=== PATIENT | female | born 1985 | race Caucasian/White ===

== ENCOUNTER 2021-04-06 12:24 | Emergency (ER) | payer OTHER, SELFPAY ==
[2021-04-06 12:30] VITALS: BP 129/67; PULSE 79; RESP 18; TEMP 36.8; O2SAT 99
--- NOTE | 2021-04-06 12:56 | ED.URI ---
HPI - URI/Sore Throat General Chief Complaint: Upper Respiratory Infection Stated Complaint: itz,cough Source: patient and RN notes reviewed Mode of arrival: ambulatory Limitations: no limitations History of Present Illness HPI Narrative: Jaye is a 35-year-old female patient who ambulated into the [facility] today with complaints of severe nasal congestion and cough starting on 04/04/2021. Patient states she does not want a Covid test she has been vaccinated. Related Data Home Medications Medication Instructions Recorded Confirmed No Home Medications 04/06/21 04/06/21 Allergies Allergy/AdvReac Type Severity Reaction Status Date / Time morphine Allergy Severe Anaphylactic Verified 04/06/21 12:49 Shock ciprofloxacin Allergy Intermediate rash Verified 04/06/21 12:49 Review of Systems Review of Systems: CONSTITUTIONAL: Denies body aches, fever, chills, or sweats. EYES: Denies visual changes, redness, or discharge. ENT: + rhinorrhea,+ congestion, denies sore throat, or otalgia. CARDIOVASCULAR: Denies chest pain, palpitations, or edema. RESPIRATORY: + cough denies dyspnea. GASTROINTESTINAL: Denies abdominal pain, nausea, vomiting, or diarrhea. GENITOURINARY: Denies dysuria or hematuria. SKIN: Denies rash, itching, or wounds. MUSCULOSKELETAL: Denies back pain, joint pain, or myalgia. NEUROLOGIC: Denies headache, numbness, tingling, or weakness. PSYCH: Denies depression or anxiety. All systems reviewed & are unremarkable except as noted in HPI and below PMFSH Comments At time of signature, I have reviewed and agree with nursing past medical, surgical, social and family history unless otherwise noted. Please see nursing chart for further information. There is no relevant family history pertinent to the presenting complaint Exam Narrative: GENERAL: Well-appearing, well-nourished, and in no acute distress. HEAD: Normocephalic, atraumatic. EYES: EOMI. No redness or drainage. Conjunctivae normal. ENT: Mucous membranes pink and moist. N nasal membranes are erythematous with clear drainage. Bilateral tympanic membranes are dull with moderate amount of fluid. No erythema noted. Posterior pharynx is erythemic with minimal edema and moderate amount of postnasal drainage. NECK: Normal AROM. Supple. anterior cervical lymphadenopathy. CHEST: No respiratory distress. Clear to auscultation. MUSCULOSKELETAL: No bony tenderness. EXTREMITIES: Normal range of motion. No edema. SKIN: Warm, dry, no rash. Capillary refill normal. Normal skin turgor. NEURO: No focal deficits. Alert and oriented x3. Gait steady. PSYCH: Normal affect. No signs of depression or anxiety. Course Vital Signs Vital signs: Vital Signs Temperature 36.8 C 04/06/21 12:30 Pulse Rate 79 04/06/21 12:30 Respiratory Rate 18 04/06/21 12:30 Blood Pressure 129/67 04/06/21 12:30 Pulse Oximetry 99 04/06/21 12:30 Temperature 36.8 C 04/06/21 12:30 Pulse Rate 79 04/06/21 12:30 Respiratory Rate 18 04/06/21 12:30 Blood Pressure 129/67 04/06/21 12:30 Pulse Oximetry 99 04/06/21 12:30 MDM - URI/Sore Throat MDM Narrative Medical decision making narrative: Patient has erythemic nasal membranes with clear rhinorrhea.. The patient has been sick 3 to 4 days. Most likely viral infection. Differential Diagnosis Differential diagnosis: Likely upper respiratory infection, otitis media and viral infection Medical Records Attestation: I reviewed the patient's medical records. Critical Care Time Critical Care Time Critical Care Time: No Discharge Plan Discharge Clinical Impression: Nasopharyngitis acute Patient Disposition: Home, Self-Care Condition: Stable Instructions: Antibiotic Form, Cold Symptoms (ED) Additional Instructions: Increase fluids May use Claritin D or Zyrtec D daily for congestion. Use Flonase daily. May use OTC cold medication. Follow up with your physician in 7-10 days for cont
--- NOTE | 2021-04-06 13:36 | PC.NURSE ---
1305 noted during stay pt stated she did not want covid testing done
== END 2021-04-06 13:05 | disposition home or self-care (01) ==
PROVIDERS: Emergency Provider Nurse Practitioner Family; PCP Internal Medicine
DX: J00 Acute nasopharyngitis [common cold] (principal)
CPT/HCPCS: 99202; G0463

== ENCOUNTER 2021-06-22 15:37 | Emergency (ER) | payer OTHER, SELFPAY ==
--- NOTE | 2021-06-22 15:40 | ED.GENADULT ---
HPI - General Adult General Chief complaint: Upper Respiratory Infection Stated complaint: cough Time Seen by Provider: 06/22/21 15:40 Source: patient Mode of arrival: ambulatory Limitations: no limitations History of Present Illness HPI narrative: 35-year-old female patient presents to the [facility] with complaints of cough, nasal congestion, shortness of breath for the past 5 days. Patient is fully vaccinated against COVID. Patient states she has also been vaccinated against influenza. Patient states has been taking some [id number] NyQuil. Denies any chest pain at this time. Related Data Home Medications Medication Instructions Recorded Confirmed No Home Medications 04/06/21 06/22/21 Allergies Allergy/AdvReac Type Severity Reaction Status Date / Time morphine Allergy Severe Anaphylactic Verified 06/22/21 15:56 Shock ciprofloxacin Allergy Intermediate rash Verified 06/22/21 15:56 Review of Systems Review of Systems: CONSTITUTIONAL: Denies fever, chills, or sweats. EYES: Denies visual changes, redness, or discharge. ENT: Positive rhinorrhea, congestion, denies ore throat, or otalgia. CARDIOVASCULAR: Denies chest pain, palpitations, or edema. RESPIRATORY: Positive cough, intermittent dyspnea. GASTROINTESTINAL: Denies abdominal pain, nausea, vomiting, or diarrhea. GENITOURINARY: Denies dysuria or hematuria. SKIN: Denies rash or itching. MUSCULOSKELETAL: Denies back pain, joint pain, or myalgia. NEUROLOGIC: Denies headache, numbness, or weakness. PSYCHIATRIC: Denies anxiety or depression. PMFSH Past Medical History Medical History (Updated 06/22/21 @ 16:01 by BERNADETTE Multani) Gallstones Kidney stones Surgical History Surgical History (Updated 06/22/21 @ 15:41 by BERNADETTE Multani) H/O tubal ligation History of tonsillectomy Social History Social History (Updated 06/22/21 @ 15:42 by BERNADETTE Multani) Smoking status: Current every day smoker Comments At the time of my signature I agree with nursing past medical history, surgical, social, and family history. There is no relevant family history pertinent to the presenting complaint. Exam Narrative: GENERAL: Well-appearing, well-nourished, and in no acute distress. HEAD: Normocephalic, atraumatic. EYES: PERRLA and EOMI. ENT: Nares with erythema and edema noted bilaterally, no rhinorrhea or epistaxis. Mucous membranes moist. Posterior pharynx with no erythema, tonsillar lodgment, exudates or lesions present. Bilateral TMs are clear with no erythema or foreign bodies to the canal. NECK: Supple. No lymphadenopathy CHEST: Clear to auscultation. No respiratory distress. HEART: Regular rate and rhythm. No murmur heard. Normal peripheral pulses. ABDOMEN: Soft, nontender, nondistended, normal active bowel sounds. EXTREMITIES: Normal range of motion. No edema. SKIN: Warm, dry, no rash. NEURO: No focal deficits. Alert and oriented x3. Course Course Level of Care: [facility] Visit Vital Signs Vital signs: Vital Signs Temperature 38.1 C H 06/22/21 15:42 Pulse Rate 81 06/22/21 15:42 Respiratory Rate 16 06/22/21 15:42 Blood Pressure 137/70 06/22/21 15:42 Pulse Oximetry 100 06/22/21 15:42 Temperature 38.1 C H 06/22/21 15:42 Pulse Rate 81 06/22/21 15:42 Respiratory Rate 16 06/22/21 15:42 Blood Pressure 137/70 06/22/21 15:42 Pulse Oximetry 100 06/22/21 15:42 Vital signs reviewed Medical Decision Making Differential Diagnosis Differential Diagnosis: Differential diagnosis: Allergic rhinitis, chronic sinusitis, tonsillitis, acute sinusitis, infectious mononucleosis, seasonal influenza, pertussis, diphtheria, meningococcal disease, viral syndrome, viral bronchitis, RSV and COVID-19 Plan of care for patient is to test her today with a PCR COVID. Discussed with patient that she should not return to work until she has been fever free for 24 hours and she should wait on her COVID test. Patient v
[2021-06-22 15:42] VITALS: BP 137/70; PULSE 81; RESP 16; TEMP 38.1; O2SAT 100
[2021-06-23 13:26] LABS: SARS-CoV-2 RNA PCR Positive
== END 2021-06-22 16:04 | disposition home or self-care (01) ==
PROVIDERS: Emergency Provider Nurse Practitioner Family; PCP Internal Medicine
DX: U07.1 COVID-19 (principal); F17.200 Nicotine dependence, unspecified, uncomplicated
CPT/HCPCS: 99213; C9803; G0463; U0003; U0005

== ENCOUNTER 2024-03-23 15:58 | Emergency (ER) | payer OTHER, SELFPAY ==
[2024-03-23 16:25] VITALS: BP 128/106; PULSE 91; RESP 16; TEMP 36.6; O2SAT 98
--- NOTE | 2024-03-23 17:00 | ED.EAR ---
HPI - Ear Problem General Chief complaint: Ear Stated complaint: Right Ear Problem Time Seen by Provider: 03/23/24 17:00 Source: patient, RN notes reviewed and old records reviewed Mode of arrival: ambulatory Limitations: no limitations History of Present Illness HPI Narrative: 38-year-old female to [facility] with complaint of right inner ear pain, redness, swelling, warmth for 1 week. Patient reports history of psoriasis. Patient denies any known lesion, ear pain, recent illness, drainage. Patient resting in exam room in no acute distress. Related Data Home Medications Medication Instructions Recorded Confirmed dicyclomine 20 mg tablet 20 mg PO BID PRN Abdominal 03/23/24 03/23/24 Discomfort fluoxetine 40 mg capsule 40 mg PO DAILY 03/23/24 03/23/24 pantoprazole 40 mg tablet,delayed 40 mg PO BID 03/23/24 03/23/24 release Allergies Allergy/AdvReac Type Severity Reaction Status Date / Time morphine Allergy Severe Anaphylactic Verified 06/22/21 15:56 Shock ciprofloxacin Allergy Intermediate rash Verified 06/22/21 15:56 Review of Systems Review of Systems: All systems reviewed & are unremarkable except as noted in HPI and below Constitutional: Constitutional: Reports no additional constitutional complaints Eyes: Eyes: Reports no additional eye complaints ENT: Reports as per HPI and Reports otalgia ( Right) Cardiovascular: Cardiovascular: Reports no additional cardiovascular complaints, Denies chest pain and Denies dyspnea Respiratory: Respiratory: Reports no additional respiratory complaints, Denies cough and Denies dyspnea Musculoskeletal: Musculoskeletal: Reports no additional musculoskeletal complaints Neurologic: Reports system reviewed and no additional complaints, except as documented Psychiatric: Psychiatric: Reports no additional psychiatric complaints [facility] Past Medical History Medical History Gallstones Kidney stones Surgical History Surgical History H/O tubal ligation History of tonsillectomy Social History Social History Smoking status: Current every day smoker Comments At the time of my signature, I reviewed and agree with the nursing past medical, surgical, social, and family history. There is no relevant family history pertinent to the patient complaint. Exam Const: General: cooperative, healthy appearing, no acute distress, alert, uncomfortable and well nourished Nutritional Appearance: well nourished Orientation/consciousness: patient oriented x3 Limitations: no limitations HENMT: Head: normal to inspection Ears: TM normal on the right, mastoids normal, Abnormal EAC present erythema on the right and EAC tenderness on the right; no otic discharge, external ear abnormal auricular tenderness on the right and diffuse, pain with movement of external ear on the right and diffuse and other ( erythema, swelling, pain) and hearing grossly not impaired Face/Nose/Sinus: Normal external nose present, Normal nares present, normal facial exam, No erythema and No edema Face and sinus: normal facial exam, no erythema and no edema Mouth: Yes Normal oral and palatal mucosa present Eyes: General: appearance normal, both eyes and all related structures Neck: Neck: normal visual inspection, full ROM and no meningeal signs Chest: Chest palpation & inspection: normal inspection of the chest Resp: Effort & Inspection: normal respiratory effort and able to speak in complete sentences Cardio: Jugular venous distension: no JVD Rate: regular rate Back/Spine/Pelvis: Cervical Spine: cervical ROM normal Skin: General skin exam: normal color, no rashes or lesions noted and turgor normal Neuro: General: patient oriented x3, gait normal, moves all extremities and no meningeal signs Speech: normal speech Ga
== END 2024-03-23 17:16 | disposition home or self-care (01) ==
PROVIDERS: Emergency Provider Nurse Practitioner Family; PCP Internal Medicine
DX: H60.11 Cellulitis of right external ear (principal); F17.200 Nicotine dependence, unspecified, uncomplicated; L40.9 Psoriasis, unspecified
CPT/HCPCS: 99213; G0463

== ENCOUNTER 2024-06-09 13:15 | Emergency (ER) | payer OTHER, SELFPAY ==
[2024-06-09 13:20] VITALS: BP 137/78; PULSE 79; RESP 18; TEMP 37.2; O2SAT 99
--- NOTE | 2024-06-09 13:34 | ED.EAR ---
HPI - Ear Problem General Chief complaint: Ear Stated complaint: right ear swollen and lump on back of head Source: patient Mode of arrival: ambulatory Limitations: no limitations History of Present Illness HPI Narrative: 38 y/o female presented for c/o right ear swelling and a lump back of the head. Symptoms worsening x4 days. Reports the Scalp drained large amount of pus last night per pt. Ear and scalp hurt with touch. endorses decreased hearing from the right ear. Denies drainage or tinnitus. Rates Pain 6/10. Endorses psoriasis in the ear, and the drops burned the skin when she last used them. Took ibuprofen. MD Complaint: ear pain Related Data Allergies Allergy/AdvReac Type Severity Reaction Status Date / Time morphine Allergy Severe Anaphylactic Verified 06/09/24 13:26 Shock ciprofloxacin Allergy Intermediate rash Verified 06/09/24 13:26 Review of Systems Review of Systems: CONSTITUTIONAL: Denies malaise, chills, or fever. EYES: Denies visual changes, redness, or discharge. ENT: Denies rhinorrhea, congestion, sinus pain, and sore throat. Reports ear pain CARDIOVASCULAR: Denies chest pain, palpitations, or edema. RESPIRATORY: Denies cough or dyspnea. GASTROINTESTINAL: Denies abdominal pain, nausea, vomiting, diarrhea SKIN: reports scalp lump/drainage MUSCULOSKELETAL: Denies myalgia. NEUROLOGIC: Denies headache. All systems reviewed & are unremarkable except as noted in HPI and below PMFSH Past Medical History Medical History Kidney stones Gallstones Surgical History Surgical History H/O tubal ligation History of tonsillectomy Social History Social History Smoking status: Current every day smoker Comments At time of signature, agree with nursing past medical, surgical, social and family history. There is no relevant family history pertinent to the presenting complaint Exam Narrative: GENERAL: Well-appearing EYES: conjunctivae clear ENT: Nares clear. Mucous membranes moist. Left TM pearly thompson with dull light reflex; right TM unable to fully visualize due to pt unable to tolerate due to canal swelling and tenderness c/w OE, no apparent drainage. Left tragal tenderness. Oropharynx not erythematous without lesions. no drooling, no hoarseness, no trismus, uvula midline. NECK: Supple. No lymphadenopathy CHEST: Clear to auscultation, breath sounds equal. HEART: Regular rate and rhythm. SKIN: Warm, dry, Firm skin colored cyst/abscess to occipital scalp approx 2cm diameter with scabbed area at center, no active drainage or fluctuance, no erythema or warmth, mildly tender. NEURO: Alert and oriented x3. PSYCH: Normal mood and affect Course Course Emergency Course: Patient is aware of diagnosis, understands and agrees to treatment plan. Anticipatory guidance given. Patient agrees to follow-up as directed and is aware of reasons to seek care at the emergency department. Portions of this record may have been created with voice recognition software Level of Care: [facility] Visit Vital Signs Vital signs: Vital Signs Temperature 98.9 F 06/09/24 13:20 Pulse Rate 79 06/09/24 13:20 Respiratory Rate 18 06/09/24 13:20 Blood Pressure 137/78 06/09/24 13:20 Pulse Oximetry 99 06/09/24 13:20 Oxygen Delivery Room Air 06/09/24 13:20 Temperature 98.9 F 06/09/24 13:20 Pulse Rate 79 06/09/24 13:20 Respiratory Rate 18 06/09/24 13:20 Blood Pressure 137/78 06/09/24 13:20 Pulse Oximetry 99 06/09/24 13:20 Oxygen Delivery Room Air 06/09/24 13:20 Reviewed Medical Decision Making MDM Narrative Medical decision making narrative: discussed physical exam findings consistent with otitis externa and a no septal scalp abscess. No fluctuance, not indicated to I&D at this time. Rx's reviewed. Advised supportive measures and signs/symptoms to go to the ER. Patient is appropriate for outpatient treatment and follow-up. Differential Diagnosis Differential Diagnosis: Coronavirus, strep pharyngitis, allergic rhinitis, upper respiratory tract infection, sinusitis, rhinosinusitis, nasopharyngitis, viral pharyngitis, otitis media, otitis externa, eustachian tube dysfunction, foreign body, cerumen impaction. Vital Signs Vital Signs: Vital Signs Temperature 98.9 F 06/09/24 13:20 Pulse Rate 79 06/09/24 13:20 Respiratory Rate 18 06/09/24 13:20 Blood Pressure 137/78 06/09/24 13:20 Pulse Oximetry 99 06/09/24 13:20 Oxygen Delivery Room Air 06/09/24 13:20 Temperature 98.9 F 06/09/24 13:20 Pulse Rate 79 06/09/24 13:20 Respiratory Rate 18 06/09/24 13:20 Blood Pressure 137/78 06/09/24 13:20 Pulse Oximetry 99 06/09/24 13:20 Oxygen Delivery Room Air 06/09/24 13:20 Discharge Plan Discharge Clinical Impression: Otitis externa, Abscess Patient Disposition: Home, Self-Care Condition: Stable Instructions: Antibiotic Form, Swimmer's Ear (ED), Abscess (ED) Additional Instructions: Swimmer's ear is an infection in the outer ear canal, which runs from your eardrum to the outside of your head. It's often caused by water that remains in your ear, creating a moist environment that encourages the growth of bacteria. Take antibiotic drops as directed. Tylenol and ibuprofen every 8 hours as needed to reduce fever, pain Avoid water or anything into the ear for one week Abscess on scalp: You may shower and Cleanse with warm soapy water Keep your wound covered if draining Warm compresses at least 4 times a day to the site to help expel any additional drainage. Take antibiotic as directed Tylenol and ibuprofen every 8 hours for pain as needed Follow up with your primary care physician in 3 days for a wound check. Go to the Emergency Department immediately For any worsening symptoms or concerns Patient Language: Hungarian Prescriptions: New gzqrmrof-[id number] 3.5-10,000-1 mg/mL-unit/mL-% drops,suspension 4 drp RIGHT EAR TID 10 Days Qty: 10 0RF doxycycline hyclate 100 mg tablet 100 mg PO BID 7 Days Qty: 14 0RF Follow-up/Referrals: Dory,MD Gail [Primary Care Provider] - Time of Disposition: 13:48
== END 2024-06-09 13:54 | disposition home or self-care (01) ==
PROVIDERS: Emergency Provider Nurse Practitioner Family; PCP Internal Medicine
DX: H60.01 Abscess of right external ear (principal)
CPT/HCPCS: 99213; G0463

== ENCOUNTER 2024-09-18 09:32 | Emergency (ER) | payer BC, SELFPAY ==
[2024-09-18 09:44] VITALS: BP 141/78; PULSE 85; RESP 16; TEMP 36.8; O2SAT 100
--- NOTE | 2024-09-18 10:01 | ED.LOWEXIN ---
HPI - Extremity Injury (Lower) General Chief Complaint: Extremity Injury, Lower Stated Complaint: Left Foot Injury/Swelling Time Seen by Provider: 09/18/24 10:01 Source: patient Mode of arrival: ambulatory Limitations: no limitations History of Present Illness HPI Narrative: 39-year-old female presents with complaint swelling, pain and redness to left lower extremity. Patient states 2 days ago she was plucking hair from her face and tweezers dropped. States that tweezers were pointy and stuck in to left ankle. Bleeding after injury but resolved quickly. Pain and swelling it started yesterday. Woke up this morning with redness and warmth. Concern for infection. Patient ambulatory with slight limp. CMS intact. All systems reviewed and negative except as noted above. Related Data Allergies Allergy/AdvReac Type Severity Reaction Status Date / Time morphine Allergy Severe Anaphylactic Verified 09/18/24 09:50 Shock ciprofloxacin Allergy Intermediate rash Verified 09/18/24 09:50 Review of Systems Review of Systems: CONSTITUTIONAL: Denies fever, chills, or sweats. EYES: Denies visual changes, redness, or discharge. ENT: Denies rhinorrhea, congestion, sore throat, or otalgia. CARDIOVASCULAR: Denies chest pain, palpitations, or edema. RESPIRATORY: Denies cough or dyspnea. GASTROINTESTINAL: Denies abdominal pain, nausea, vomiting, or diarrhea. GENITOURINARY: Denies dysuria or hematuria. SKIN: Denies rash or itching. Reports pain, swelling, redness, warmth to left lower extremity. MUSCULOSKELETAL: Denies back pain, joint pain, or myalgia. NEUROLOGIC: Denies headache, numbness, or weakness. PSYCHIATRIC: Denies anxiety or depression. All other systems reviewed are negative, except as documented in HPI. [facility] Past Medical History Medical History Kidney stones Gallstones Surgical History Surgical History H/O tubal ligation History of tonsillectomy Social History Social History Smoking status: Current every day smoker Comments At time of signature, agree with nursing past medical, surgical, social and family history. There is no relevant family history pertinent to the presenting complaint. Exam Narrative: GENERAL: This is a well-nourished, well-developed patient, in no apparent distress. HEAD: normocephalic, atraumatic. EYES: PERRL. Sclera clear/white. Vision is grossly intact. EARS: External ears normal NOSE: External nose normal NECK: Neck supple, non-tender without lymphadenopathy, masses or thyromegaly. CARDIOVASCULAR: Regular rate and rhythm without murmurs, gallops, or rubs. RESPIRATORY: Clear to auscultation. Breath sounds equal bilaterally. No wheezes, rales, or rhonchi. SKIN: warm, Dry, intact with no suspicious lesions or rash, good texture and turgor. NEURO: awake, alert, and oriented to person, place and time. There were no obvious focal neurologic abnormalities. EXTREMITIES: No joint tenderness, effusion noted. erythema, swelling, tenderness to anterior aspect L ankle with warmth on palpation. ROM and distal NV intact. Course Course Level of Care: [facility] Visit Vital Signs Vital signs: Vital Signs Temperature 36.8 C 09/18/24 09:44 Pulse Rate 85 09/18/24 09:44 Respiratory Rate 16 09/18/24 09:44 Blood Pressure 141/78 H 09/18/24 09:44 Pulse Oximetry 100 09/18/24 09:44 Oxygen Delivery Room Air 09/18/24 09:44 Temperature 36.8 C 09/18/24 09:44 Pulse Rate 85 09/18/24 09:44 Respiratory Rate 16 09/18/24 09:44 Blood Pressure 141/78 H 09/18/24 09:44 Pulse Oximetry 100 09/18/24 09:44 Oxygen Delivery Room Air 09/18/24 09:44 Reviewed MDM - Extremity Injury (Lower) MDM Narrative Medical decision making narrative: patient is well-appearing, nontoxic. CMS intact to left lower extremity. Will prescribe antibiotic for cellulitis. Recommend follow-up with primary care physician as needed. Please be advised this is a medical document. It is intended for [id number] communication. It is written in medical language and may contain unfamiliar abbreviations or verbiage. Medical documents are intended to carry relevant information, facts as evident, and the clinical opinion of the practitioner at the time of the encounter. This report may have been done utilizing a voice recognition system. Attempts have been made to correct errors. However, there may be uncorrected grammatical, spelling, and recognition errors present. The file time of this note does not necessarily represent the time of service. Discharge Plan Discharge Clinical Impression: Cellulitis of left lower extremity Patient Disposition: Home Condition: Stable Instructions: Antibiotic Form, Cellulitis (ED) Additional Instructions: take antibiotic as prescribed until gone. Take ibuprofen or Tylenol every 6-8 hours as needed for pain. Elevate when at rest. Follow-up with your doctor if symptoms are not improving. For any worsening of symptoms go to the ER. Patient Language: Canadian Prescriptions: New cephalexin 500 mg capsule 500 mg PO QID 7 Days Qty: 28 0RF Follow-up/Referrals: Dory,MD Gail [Primary Care Provider] - Time of Disposition: 10:08
--- OUTSIDE RECORDS SUMMARY | 2024-09-18 10:23 | XMS_ITS ---
Care Plan - [facility] Created on: September 18, 2024 TOREY PAGAN : 1985 Sex: Female Author Organization [facility] Address [address] [place] [address] Phone Care Team Providers Care [employer] T[employer] Name Role Phone Unavailable Unavailable Unavailable
--- OUTSIDE RECORDS SUMMARY | 2024-09-18 10:23 | XMS_ITS | Clinical Summary ---
Author Organization [facility] Address [address] [place] [address] Phone Care Team Providers Care Rayon Coner Name Role Phone Unavailable Unavailable Unavailable Reason for Visit and Chief Complaint The Chief Complaint is: Patient states she is experiencing bilateral ear pain for about 4 or 5 days. She woke up this morning with right ear canal swollen shut making hearing very difficult Problems Includes: Problems addressed during this encounter and other active Problems No Active Problems Plan of Treatment If symptoms worsen or do not improve call/return to office. - Last Documented On 01/24/2020 6:08PM ; [facility] Assessments Includes: Assessments from this encounter Findings - Otitis externa [H60.333 - Swimmer's ear, bilateral] - Last Documented On 01/24/2020 6:08PM ; [facility] Medical Equipment - Implanted Devices Includes: Current Devices No Medical Equipment Recorded Medications Includes: Medications discussed during this encounter and other current Medications New / Renewed during this visit FRANCISCA FRENCH on 01/24/2020 Nbfukaqo-Zietiivnh-SD 3.5-10 000-1 Otic Solution Provider: FRANCISCA FRENCH 10 day supply: 1 bottle, 0 refills Diagnosis: Swimmer's ear, bilateral as directed 4 drops in each ear TID Pharmacy: [facility] [address], [address] - Last Documented On 12/26/2020 10:09AM By Blade ARMENDARIZ ; [facility] Current Medications (continue as prescribed) Cipbrwom-Wvqorlksd-KT 1% Suzette c Solution 12/26/2020 Provider: ADDISON SOSA Diagnosis: Acute serous suzette tis media, left ear as directed Last Documented On 1 10:15AM By ADDISON SOSA ; [facility] Medications Administered Includes: Administered Medications from this encounter No Administered Medications Recorded Vital Signs Includes: Vital Signs from this encounter Vital Name 01/24/2020 05:57P Blood Pressure Sitting L 110/70 BP Cuff Size Regular Pulse Rate-Sitting (bpm) 67 Temp-Oral (F) 98.7 Height (in) 66 Weight (lb) 163 Body Mass Index (kg/m2) 26.3 Body Surface Area (m2) 1.8 Oxygen Saturation (%) 97 Last Documented: On 01/24/2020 5:59PM ; [facility] Results Includes: Results discussed during this encounter No Results Recorded For Specified Dates History of Present Illness Includes: History of Present Illness from this encounter RICHAR PAGAN is a 34 year old female. - Allergy list reviewed - Medication reconciliation performed - Feeling fine - Not feeling poorly (malaise) - No fever - No chills - No headache - Earache in right ear - In left ear - No nasal discharge - No postnasal drip - No nasal passage blockage (stuffiness) - No sore throat - No dyspnea - No cough - No wheezing - No vomiting - No diarrhea Patient is here today for bilateral ear ache-- ears feels plugged and swollen. Social History Description Last Updated Smoker 01/24/2020 Last Documented On 0 6:08PM ; [facility] Smoking Status Unknown Procedures and Surgical History Includes: Procedures from this encounter Procedures Code Diagnosis Performing Provider Service L ocation Service Date review of medications documented 1160F Last Documented On 0 5:57PM ; [facility] Clinical summary provided to patient Last Documented On 0 6:06PM ; [facility] Medical History Includes: Medical History addressed during this encounter No Medical History Recorded Family History Includes: Family History addressed during this encounter No Family History Recorded Review of Systems Includes: Review of Systems from this encounter Systemic: No fever. Head: No headache. Otolaryngeal: Earache. No nasal discharge and no sore throat. Pulmonary: No cough. Gastrointestinal: No gastrointestinal symptoms. Skin: No skin symptoms. Mental Status Includes: Mental Status from this encounter Description Oriented to time, place, and person Functional Status Includes: Functional Status from this encounter No Functional Status Recorded Physical Exam Includes: Physical Exam from this encounter Allergies Includes: Active Allergies Substance Type Reaction Onset Date Resolved Date Statu s Cipro Allergy Nausea, Vomiting 01/24/2020 Ac tive Last Documented On 1 9:56AM ; [facility] Encounters Encounter Provider Location Date Check-In Time Check-Out Time Diagnosis WALK-IN CLINIC SICK VISIT FRANCISCA FLEMING-C [facility] 01/24/20 20 5:45PM 6:08PM Otitis Externa Insurance Includes: Active Insurance Policies Plan Name Member ID Group # Subscriber Relationship Effect tonya Dates 1 - AETNA [facility] [id number] TOREY PAGAN Self Clinical Notes Includes: Clinical Notes from this encounter No Clinical Notes Recorded
--- OUTSIDE RECORDS SUMMARY | 2024-09-18 10:23 | XMS_ITS | Clinical Summary ---
Author Organization [facility] Address [address] [place] [address] Phone Care Team Providers Care Transaction Processor Name Role Phone Unavailable Unavailable Unavailable Reason for Visit and Chief Complaint The Chief Complaint is: Exposed at work, Pt cough and ear pain Problems Includes: Problems addressed during this encounter and other active Problems No Active Problems Plan of Treatment - Return to the clinic if condition worsens or new symptoms arise - Last Documented On 12/26/2020 4:44PM ; [facility] - Go to the emergency room if condition worsens - Last Documented On 12/26/2020 4:44PM ; [facility] - Patient will call for appointment as needed - Last Documented On 12/26/2020 4:44PM ; [facility] Instructions to patient Instructions for patient Last Documented On 4:37PM ; [facility] Go to the emergency room if condition worsens Last Documented On 4:43PM ; [facility] Watch for signs/symptoms of infection, return to the clinic if seen Last Documented On 4:43PM ; [facility] Assessments Includes: Assessments from this encounter Findings - Acute upper respiratory infection - Last Documented On 12/26/2020 4:44PM ; [facility] Instructions Includes: Instructions from this encounter Instructions to patient Instructions for patient Last Documented On 4:37PM ; [facility] Go to the emergency room if condition worsens Last Documented On 4:43PM ; [facility] Watch for signs/symptoms of infection, return to the clinic if seen Last Documented On 4:43PM ; [facility] Medical Equipment - Implanted Devices Includes: Current Devices No Medical Equipment Recorded Medications Includes: Medications discussed during this encounter and other current Medications Discontinued / Stopped on this date FRANCISCA FRENCH on 01/24/2020 Fgjpxwgo-Nhwlohjqx-TQ 3.5-10 000-1 Otic Solution Provider: FRANCISCA FRENCH Diagnosis: Swimmer's ear, bilateral Last Documented On 12/26/2020 10:09AM By Blade ARMENDARIZ ; [facility] New / Renewed during this visit ADDISON SOSA on 12/26/2020 Fqsjvdhl-Rdedzwoho-YS 1% Vilma c Solution Provider: ADDISON SOSA 30 day supply: 10 mL, 0 refills Diagnosis: Acute serous otitis media, left ear as directed Pharmacy: [facility] [address], [address] - Last Documented On 10:15AM By ADDISON SOSA ; [facility] Medications Administered Includes: Administered Medications from this encounter No Administered Medications Recorded Vital Signs Includes: Vital Signs from this encounter Vital Name 12/26/2020 10:15A 12/26/2020 10: 09A Height (in) 66 66 Weight (lb) 198 98.8 Body Mass Index (kg/m2) 32.0 15.9 Body Surface Area (m2) 2.0 1.5 Pulse Rate-Sitting (bpm) 79 Oxygen Saturation (%) 99 Last Documented: On 12/26/2020 10:15A M ; [facility] On 12/26/2020 10:10AM ; [facility] Results Includes: Results discussed during this encounter Rapid COVID Test [facility] Ordered by ADDISON SOSA on Collected: Reported: 12/26/2020 12:09 Last Documented On 12:09PM ; [facility] Reviewed on 12/26/2020; All test results are final unless otherwise noted. Rapid COVId NEGATIVE N (Normal) Last Documented On 12:09PM ; [facility] Int. QC Acceptable YES N (Normal) Last Documented On 1 12:09PM ; [facility] Lot # and Exp. Date [id number] 03/19/21 N (Normal) Last Documented On 1 12:09PM ; [facility] History of Present Illness Includes: History of Present Illness from this encounter RICHAR PAGAN is a 35 year old female. Source of patient information was patient ? Allergy list reviewed ? Medication reconciliation performed - Duration of symptoms - Previously well - No fever - No chills - Headache - No sinus pain - No sinus pressure - No swollen glands in the neck - No itching of the eyes - No discharge from the eyes - Earache in left ear - Nasal discharge - The ears do not feel pressured - The ears do not feel full - No discharge from the ears - No postnasal drip - No nasal passage blockage (stuffiness) - No sneezing - No sore throat - No itchy throat - No chest pain or discomfort - No palpitations - Cough - Not feeling congested in the chest - No dyspnea - No wheezing - No rash pt to clinic for above symptoms x 4 days was exposed to covid at work - also having left ear pain she has not been taking any OTC medications Social History Description Last Updated Current smoker 12/26/2020 Last Documented On 1 4:44PM ; [facility] Smoker 01/24/2020 Last Documented On 1 10:09AM ; [facility] Smoking Status Unknown Procedures and Surgical History Includes: Procedures from this encounter Procedures Code Diagnosis Performing Provider Service L ocation Service Date the options include close observation Last Documented On 1 4:43PM ; [facility] watch for signs/symptoms of infection, r eturn to the clinic if seen Last Documented On 1 4:43PM ; [facility] plan of care reviewed and agreed to by t he patient Last Documented On 1 4:37PM ; [facility] Patient verbalizes understanding Last Documented On 1 4:37PM ; [facility] Increase fluids Last Documented On 1 4:37PM ; [facility] Clinical summary provided to patient Last Documented On 1 4:37PM ; [facility] Medical History Includes: Medical History addressed during this encounter Description Last Updated Contact with and (Suspected) exposure to COVID-19 12/26/2020 Last Documented On 1 4:44PM ; [facility] No fall 12/26/2020 Last Documented On 1 4:44PM ; [facility] Family History Includes: Family History addressed during this encounter Description Last Updated Family history unchanged 12/26/2020 Last Documented On 1 4:44PM ; [facility] Review of Systems Includes: Review of Systems from this encounter Systemic: No edema. Head: No headache. Neurological: No dizziness. Past Medical: No fall in the past 6 months. Mental Status Includes: Mental Status from this encounter Description Oriented to time, place, and person Functional Status Includes: Functional Status from this encounter No Functional Status Recorded Physical Exam Includes: Physical Exam from this encounter Allergies Includes: Active Allergies Substance Type Reaction Onset Date Resolved Date Statu s Cipro Allergy Nausea, Vomiting 01/24/2020 Ac tive Last Documented On 1 9:56AM ; [facility] Encounters Encounter Provider Location Date Check-In Time Check-Out Time Diagnosis COVID SICK VISIT- ESTABLISHED PATIENT ADDISON Masters BLADIMIR NAIL MAKER-BC [facility] 12/27/19 21 9:40AM 10:13AM Upper Respiratory Infection Acute Insurance Includes: Active Insurance Policies Plan Name Member ID Group # Subscriber Relationship Effect tonya Dates 1 - AETNA [facility] [id number] TOREY PAGAN Self Clinical Notes Includes: Clinical Notes from this encounter No Clinical Notes Recorded
--- OUTSIDE RECORDS SUMMARY | 2024-09-18 10:23 | XMS_ITS | Clinical Summary ---
Author Organization [facility] Address [address] [place] [address] Phone Care Team Providers Care Plastic Tool Maker Name Role Phone Unavailable Unavailable Unavailable Reason for Visit and Chief Complaint The Chief Complaint is: COVID exposure on December 26 to her co-worker, sx of chills/sweats,coughing phlegm, sinus drainage, nausea/vomiting, STRONG, S.T and fatigue/tired since yesterday Problems Includes: Problems addressed during this encounter and other active Problems No Active Problems Plan of Treatment - The options include close observation - Last Documented On 12/30/2020 10:16AM ; [facility] - Continue current medication - Last Documented On 12/30/2020 10:16AM ; [facility] Rapid COVID testing performed today and was negative. Patient to continue to monitor symptoms closely as rapid testing may have false negative results. Call with development of additional or worsening symptoms. Go to ED with severe respiratory symptoms. - Last Documented On 12/30/2020 10:16AM ; [facility] Due to close contact with a person who has COVID-19, patient was advised to: Stay home until 14 days after last contact. Check temperature twice a day and watch for symptoms of COVID-19. If possible, stay away from people who are higher-risk for getting very sick from COVID-19. - Last Documented On 12/30/2020 10:16AM ; [facility] Assessments Includes: Assessments from this encounter Findings - Contact with and (Suspected) exposure to COVID-19 [Contact with and (suspected) exposure to COVID-19] - Last Documented On 12/30/2020 10:16AM ; [facility] Medical Equipment - Implanted Devices Includes: Current Devices No Medical Equipment Recorded Medications Includes: Medications discussed during this encounter and other current Medications Current Medications (continue as prescribed) Dhvnllmf-Ctglmsdfn-QO 1% Suzette c Solution 12/26/2020 Provider: ADDISON SOSA Diagnosis: Acute serous suzette tis media, left ear as directed Last Documented On 10:15AM By ADDISON SOSA ; [facility] Medications Administered Includes: Administered Medications from this encounter No Administered Medications Recorded Vital Signs Includes: Vital Signs from this encounter Vital Name 12/30/2020 09:57A Pulse Rate-Sitting (bpm) 63 Temp-Oral (F) 98 Height (in) 66 Oxygen Saturation (%) 98 Last Documented: On 12/30/2020 10:14A M ; [facility] Results Includes: Results discussed during this encounter Rapid COVID Test [facility] Ordered by HARRIETT FRENCH on 12/06 Collected: Reported: 12/30/2020 Last Documented On 10:08AM ; [facility] Reviewed on 12/30/2020; All test results are final unless otherwise noted. Rapid COVId neg N (Normal) Last Documented On 10:08AM ; [facility] Int. QC Acceptable yes N (Normal) Last Documented On 10:08AM ; [facility] Lot # and Exp. Date [id number] 03/19/21 N (Normal) Last Documented On 10:08AM ; [facility] History of Present Illness Includes: History of Present Illness from this encounter RICHAR PAGAN is a 35 year old female. - Allergy list reviewed - Medication reconciliation performed - Feeling tired - Chills - Not feeling poorly (malaise) - No fever - Headache - No sinus pain - No swollen glands in the neck - Nasal discharge - Sore throat - No ear symptoms - No earache - No postnasal drip - No nasal passage blockage (stuffiness) - No sneezing - No chest pain or discomfort - Not feeling congested in the chest - No shortness of breath - No cough - Not coughing up sputum - No wheezing - Nausea - Vomiting - Normal appetite - No abdominal pain - No diarrhea - Myalgias - No anosmia - No taste disturbances - Not unpleasantly altered - No skin symptoms Jaye is a 35-year-old female patient that presented to the walk-in clinic for chills, cough, sinus drainage, nausea, vomiting, headache, sore throat and fatigue that started yesterday. She reports that she was exposed to a coworker that tested positive for COVID-last exposure was 12/26. She has not been taking any OTC medication for symptoms. Social History Description Last Updated Not a current smoker 12/30/2020 Last Documented On 10:16AM ; [facility] Current smoker 12/30/2020 Last Documented On 10:16AM ; [facility] Smoking Status Unknown Procedures and Surgical History Includes: Procedures from this encounter Procedures Code Diagnosis Performing Provider Service L ocation Service Date the options include decongestants as needed per product instructions Last Documented On 10:11AM ; [facility] the options include antihistamines as ne eded per product instructions Last Documented On 10:11AM ; [facility] Pt to use OTC fever/pain product as need ed per product instruction.~ Last Documented On 10:11AM ; [facility] Pt to use OTC expectorant product as nee ded per product instruction.~ Last Documented On 10:11AM ; [facility] Pt to use OTC cough product as needed pe r product instruction.~ Last Documented On 10:11AM ; [facility] plan of care reviewed and agreed to Last Documented On 10:11AM ; [facility] patient to call if symptoms worsen or not improved to update patient's status as needed Last Documented On 10:11AM ; [facility] use of tobacco assessment performed 1000F Last Documented On 9:57AM ; [facility] Medical History Includes: Medical History addressed during this encounter Description Last Updated Exposure to a contagious disease 021 Last Documented On 10:16AM ; [facility] Not taking OTC medications 12/30/2020 Last Documented On 1 10:16AM ; [facility] Contact with and (Suspected) exposure to COVID-19 12/30/2020 Last Documented On 1 10:16AM ; [facility] Date COVID symptoms started: 12/2020 Last Documented On 1 10:16AM ; [facility] No fall 12/30/2020 Last Documented On 1 10:16AM ; [facility] Family History Includes: Family History addressed during this encounter No Family History Recorded Review of Systems Includes: Review of Systems from this encounter Systemic: No fever. Chills. Head: Headache. No sinus pressure. Otolaryngeal: No earache. Nasal discharge and sore throat. Cardiovascular: No chest pain or discomfort. Pulmonary: Cough. No wheezing. Gastrointestinal: Vomiting. No abdominal pain and no diarrhea. Musculoskeletal: Muscle aches. Skin: No skin lesions. Mental Status Includes: Mental Status from this encounter No Mental Status Recorded Functional Status Includes: Functional Status from this encounter No Functional Status Recorded Physical Exam Includes: Physical Exam from this encounter Allergies Includes: Active Allergies Substance Type Reaction Onset Date Resolved Date Statu s Cipro Allergy Nausea, Vomiting 01/24/2020 Ac tive Last Documented On 1 9:56AM ; [facility] Encounters Encounter Provider Location Date Check-In Time Check-Out Time Diagnosis COVID SICK VISIT- ESTABLISHED PATIENT HARRIETT Guerrero IBANEZ LAP MACHINE TENDER-C [facility] 12/31/19 21 9:42AM 10:07AM Contact with and (Suspected) Exposure To Covid-19 Insurance Includes: Active Insurance Policies Plan Name Member ID Group # Subscriber Relationship Effect tonya Dates 1 - AETNA [facility] [id number] TOREY PAGAN Self Clinical Notes Includes: Clinical Notes from this encounter No Clinical Notes Recorded
--- OUTSIDE RECORDS SUMMARY | 2024-09-18 10:23 | XMS_ITS ---
Author Organization [facility] Address [address] [place] [address] Phone Care Team Providers Care Registered Nurse Practitioner Name Role Phone Unavailable Unavailable Unavailable Problems Includes: Active, inactive, and resolved Problems No Active Problems Plan of Treatment Findings Encounter Date Continue current medication COVID SICK V ISIT- ESTABLISHED PATIENT with HARRIETT IBANEZ ONSHORE DIVER-C 12/30/2020 Last Documented On 1 10:16AM ; [facility] The options include close observation CO VID SICK VISIT- ESTABLISHED PATIENT with HARRIETT IBANEZ ONSHORE DIVER-C 12/30/2020 Last Documented On 1 10:16AM ; [facility] Go to the emergency room if condition worsens COVID SICK VISIT- ESTABLISHED PATIENT with ADDISON Masters BLADIMIR ONSHORE DIVER-BC 12/26/2020 Last Documented On 1 4:44PM ; [facility] Ordered patient will call [facility] appointment as needed COVID SICK VISIT- ESTABLISHED PATIENT with ADDISON Masters BLADIMIR ONSHORE DIVER-BC 12/26/2020 Last Documented On 1 4:44PM ; [facility] Ordered return to the clinic if condition worsens or new symptoms arise COVID SICK VISIT- ESTABLISHED PATIENT with ADDISON Masters BLADIMIR ONSHORE DIVER-BC 12/26/2020 Last Documented On 1 4:44PM ; [facility] Instructions to patient Instructions for patient Last Documented On 1 4:37PM ; [facility] Go to the emergency room if condition worsens Last Documented On 1 4:43PM ; [facility] Watch for signs/symptoms of infection, return to the clinic if seen Last Documented On 1 4:43PM ; [facility] Assessments Includes: Assessments for all patient encounters Findings Encounter Date Contact with and (Suspected) exposure to COVID-19 COVID SICK VISIT- ESTABLISHED PATIENT with HARRIETT SPARKSP-C 12/30/2020 Last Documented On 1 10:16AM ; [facility] Acute upper respiratory infection COVID SICK VISIT- ESTABLISHED PATIENT with ADDISON SOSA 12/26/2020 Last Documented On 1 4:44PM ; [facility] Otitis externa [H60.333 - Sw immer's ear, bilateral] WALK-IN CLINIC SICK VISIT with FRANCISCA FLEMING-Salima 01/24/2020 Last Documented On 0 6:08PM ; [facility] Instructions Includes: Instructions for all patient encounters Instructions to patient Instructions for patient Last Documented On 1 4:37PM ; [facility] Go to the emergency room if condition worsens Last Documented On 1 4:43PM ; [facility] Watch for signs/symptoms of infection, return to the clinic if seen Last Documented On 1 4:43PM ; [facility] Medical Equipment - Implanted Devices Includes: Current and historical Devices No Medical Equipment Recorded Medications Includes: Current and historical Medications Current Medications (continue as prescribed) Kwnecfbt-Hgnglhaya-KX 1% Suzette c Solution 12/26/2020 Provider: ADDISON SOSA Diagnosis: Acute serous suzette tis media, left ear as directed Last Documented On 1 10:15AM By ADDISON SOSA ; [facility] Past Medications on file Ntonvifo-Ojretlwcw-AE 3.5-43215-9 Otic Solution 01/24/2020 - 12/26/2020 Provider: FRANCISCA FRENCH Diagnosis: Swimmer's ear, bilateral as directed 4 drops in each ear TID Last Documented On 12/26/2020 10:09AM By Blade ARMENDARIZ ; [facility] Medications Administered Includes: Administered Medications in patient's chart No Administered Medications Recorded Results Includes: Results from 09/19/2023 through 09/18/2024 No Results Recorded For Specified Dates History of Present Illness History of Present Illness not supported for this document type No History of Present Illness Recorded Social History Description Last Updated Not a current smoker 12/30/2020 Last Documented On 1 10:16AM ; [facility] Smoker 01/24/2020 Last Documented On 0 6:08PM ; [facility] Smoking Status Unknown Medical History Includes: Medical History in patient's chart Description Last Updated Exposure to a contagious disease 021 Last Documented On 1 10:16AM ; [facility] Not taking OTC medications 12/30/2020 Last Documented On 10:16AM ; [facility] Contact with and (Suspected) exposure to COVID-19 12/30/2020 Last Documented On 1 10:16AM ; [facility] Date COVID symptoms started: 12/2020 Last Documented On 1 10:16AM ; [facility] No fall 12/30/2020 Last Documented On 1 10:16AM ; [facility] Family History Includes: Family History in patient's chart Description Last Updated Family history unchanged 12/26/2020 Last Documented On 1 4:44PM ; [facility] Review of Systems Review of Systems not supported for this document type No Review of Systems Recorded Mental Status No Mental Status Recorded Functional Status No Functional Status Recorded Physical Exam Physical Exam not supported for this document type No Physical Exam Recorded Allergies Includes: Active, inactive, and resolved Allergies Substance Type Reaction Onset Date Resolved Date Statu s Cipro Allergy Nausea, Vomiting 01/24/2020 Ac tive Last Documented On 1 9:56AM ; [facility] Insurance Includes: Active Insurance Policies Plan Name Member ID Group # Subscriber Relationship Effect tonya Dates 1 - AETNA [facility] [id number] TOREY PAGAN Self Clinical Notes Includes: Signed Clinical Notes starting from 06/26/2022 No Clinical Notes Recorded
--- OUTSIDE RECORDS SUMMARY | 2024-09-18 10:32 | XMS_ITS | Clinical Summary ---
Author Organization [facility] Address [address] [place] [address] Phone Care Team Providers Care Shake Loader Name Role Phone Unavailable Unavailable Unavailable Reason [...] - Last Documented On 01/24/2020 6:08PM ; [facility] Assessments Includes: Assessments from this encounter Findings - Otitis externa [H60.333 - Swimmer's ear, bilateral] - Last Documented On 01/24/2020 6:08PM ; [facility] Medical Equipment - Implanted Devices Includes: Current Devices No Medical Equipment Recorded Medications Includes: Medications discussed during this encounter and other current Medications New / Renewed during this visit FRANCISCA FRENCH on 01/24/2020 Celwxnlk-Mjufyxjcm-VJ 3.5-10 000-1 Otic Solution Provider: FRANCISCA FRENCH 10 day supply: 1 bottle, 0 refills Diagnosis: Swimmer's ear, bilateral as directed 4 drops in each ear TID Pharmacy: [facility] [address], [address] - Last Documented On 12/26/2020 10:09AM By Blade ARMENDARIZ ; [facility] Current Medications (continue as prescribed) Altciemo-Rnkawyycc-BJ 1% Suzette c Solution 12/26/2020 Provider: ADDISON SOSA Diagnosis: Acute serous suzette tis media, left ear as directed Last Documented On 1 10:15AM By ADDISON SOSA ; [facility] Medications Administered Includes: Administered Medications [...] 97 Last Documented: On 01/24/2020 5:59PM ; [facility] Results Includes: Results discussed during this encounter [...] 01/24/2020 Last Documented On 0 6:08PM ; [facility] Smoking Status Unknown Procedures and Surgical History Includes: Procedures from this encounter Procedures Code Diagnosis Performing Provider Service L ocation Service Date review of medications documented 1160F Last Documented On 0 5:57PM ; [facility] Clinical summary provided to patient Last Documented On 0 6:06PM ; [facility] Medical History Includes: Medical History addressed during [...] tive Last Documented On 1 9:56AM ; [facility] Encounters Encounter Provider Location Date Check-In Time Check-Out Time Diagnosis WALK-IN CLINIC SICK VISIT FRANCISCA FLEMING-C [facility] 01/24/20 20 5:45PM 6:08PM Otitis Externa Insurance Includes: Active Insurance Policies Plan Name Member ID Group # Subscriber Relationship Effect tonya Dates 1 - AETNA [facility] [id number] TOREY PAGAN Self Clinical Notes Includes: Clinical Notes from this encounter No Clinical Notes Recorded
--- OUTSIDE RECORDS SUMMARY | 2024-09-18 10:32 | XMS_ITS ---
Author Organization [facility] Address [address] [place] [address] Phone Care Team Providers Care Marketing Support Manager Name Role Phone Unavailable Unavailable Unavailable Problems Includes: Active, inactive, and resolved Problems No Active Problems Plan of Treatment Findings Encounter Date Continue current medication COVID SICK V ISIT- ESTABLISHED PATIENT with HARRIETT IBANEZ PERSONNEL ARBITRATOR-C 12/30/2020 Last Documented On 1 10:16AM ; [facility] The options include close observation CO VID SICK VISIT- ESTABLISHED PATIENT with HARRIETT IBANEZ PERSONNEL ARBITRATOR-C 12/30/2020 Last Documented On 1 10:16AM ; [facility] Go to the emergency room if condition worsens COVID SICK VISIT- ESTABLISHED PATIENT with ADDISON Masters BLADIMIR PERSONNEL ARBITRATOR-BC 12/26/2020 Last Documented On 1 4:44PM ; [facility] Ordered patient will call [facility] appointment as needed COVID SICK VISIT- ESTABLISHED PATIENT with ADDISON Masters BLADIMIR PERSONNEL ARBITRATOR-BC 12/26/2020 Last Documented On 1 4:44PM ; [facility] Ordered return to the clinic if condition worsens or new symptoms arise COVID SICK VISIT- ESTABLISHED PATIENT with ADDISON Masters BLDAIMIR PERSONNEL ARBITRATOR-BC 12/26/2020 Last Documented On 1 4:44PM ; [facility] Instructions to patient Instructions for patient Last Documented On 1 4:37PM ; [facility] Go to the emergency room if condition worsens Last Documented On 1 4:43PM ; [facility] Watch for signs/symptoms of infection, return to the clinic if seen Last Documented On 1 4:43PM ; [facility] Assessments Includes: Assessments for all patient encounters Findings Encounter Date Contact with and (Suspected) exposure to COVID-19 COVID SICK VISIT- ESTABLISHED PATIENT with HARRIETT SPARKSP-C 12/30/2020 Last Documented On 1 10:16AM ; [facility] Acute upper respiratory infection COVID SICK VISIT- ESTABLISHED PATIENT with ADDISON SOSA 12/26/2020 Last Documented On 1 4:44PM ; [facility] Otitis externa [H60.333 - Sw immer's ear, bilateral] WALK-IN CLINIC SICK VISIT with FRANCISCA FLEMING-Salima 01/24/2020 Last Documented On 0 6:08PM ; [facility] Instructions Includes: Instructions for all patient encounters Instructions to patient Instructions for patient Last Documented On 1 4:37PM ; [facility] Go to the emergency room if condition worsens Last Documented On 1 4:43PM ; [facility] Watch for signs/symptoms of infection, return to the clinic if seen Last Documented On 1 4:43PM ; [facility] Medical Equipment - Implanted Devices Includes: Current and historical Devices No Medical Equipment Recorded Medications Includes: Current and historical Medications Current Medications (continue as prescribed) Skyvcomz-Qffthnxsb-IE 1% Suzette c Solution 12/26/2020 Provider: ADDISON SOSA Diagnosis: Acute serous suzette tis media, left ear as directed Last Documented On 1 10:15AM By ADDISON SOSA ; [facility] Past Medications on file Jvlvjjur-Xjzpuziob-LG 3.5-63682-0 Otic Solution 01/24/2020 - 12/26/2020 Provider: FRANCISCA FRENCH Diagnosis: Swimmer's ear, bilateral as directed 4 drops in each ear TID Last Documented On 12/26/2020 10:09AM By Blade ARMENDARIZ ; [facility] Medications Administered Includes: Administered Medications in patient's chart No Administered Medications Recorded Results Includes: Results from 09/19/2023 through 09/18/2024 No Results Recorded For Specified Dates History of Present Illness History of Present Illness not supported for this document type No History of Present Illness Recorded Social History Description Last Updated Not a current smoker 12/30/2020 Last Documented On 1 10:16AM ; [facility] Smoker 01/24/2020 Last Documented On 0 6:08PM ; [facility] Smoking Status Unknown Medical History Includes: Medical History in patient's chart Description Last Updated Exposure to a contagious disease 021 Last Documented On 1 10:16AM ; [facility] Not taking OTC medications 12/30/2020 Last Documented On 10:16AM ; [facility] Contact with and (Suspected) exposure to COVID-19 12/30/2020 Last Documented On 1 10:16AM ; [facility] Date COVID symptoms started: 12/2020 Last Documented On 1 10:16AM ; [facility] No fall 12/30/2020 Last Documented On 1 10:16AM ; [facility] Family History Includes: Family History in patient's chart Description Last Updated Family history unchanged 12/26/2020 Last Documented On 1 4:44PM ; [facility] Review of Systems Review of Systems not [...] tive Last Documented On 1 9:56AM ; [facility] Insurance Includes: Active Insurance Policies Plan Name Member ID Group # Subscriber Relationship Effect tonya Dates 1 - AETNA [facility] [id number] TOREY PAGAN Self Clinical Notes Includes: Signed Clinical Notes starting from 06/26/2022 No Clinical Notes Recorded
--- OUTSIDE RECORDS SUMMARY | 2024-09-18 10:32 | XMS_ITS | Clinical Summary ---
Author Organization [facility] Address [address] [place] [address] Phone Care Team Providers Care Ese Teacher Name Role Phone Unavailable Unavailable Unavailable Reason [...] - Last Documented On 12/30/2020 10:16AM ; [facility] - Continue current medication - Last Documented On 12/30/2020 10:16AM ; [facility] Rapid COVID testing performed today and was negative. Patient to continue to monitor symptoms closely as rapid testing may have false negative results. Call with development of additional or worsening symptoms. Go to ED with severe respiratory symptoms. - Last Documented On 12/30/2020 10:16AM ; [facility] Due to close contact with a person who has COVID-19, patient was advised to: Stay home until 14 days after last contact. Check temperature twice a day and watch for symptoms of COVID-19. If possible, stay away from people who are higher-risk for getting very sick from COVID-19. - Last Documented On 12/30/2020 10:16AM ; [facility] Assessments Includes: Assessments from this encounter Findings - Contact with and (Suspected) exposure to COVID-19 [Contact with and (suspected) exposure to COVID-19] - Last Documented On 12/30/2020 10:16AM ; [facility] Medical Equipment - Implanted Devices Includes: Current Devices No Medical Equipment Recorded Medications Includes: Medications discussed during this encounter and other current Medications Current Medications (continue as prescribed) Ynpbchjp-Icsfkinpt-HJ 1% Suzette c Solution 12/26/2020 Provider: ADDISON SOSA Diagnosis: Acute serous suzette tis media, left ear as directed Last Documented On 10:15AM By ADDISON SOSA ; [facility] Medications Administered Includes: Administered Medications from this encounter No Administered Medications Recorded Vital Signs Includes: Vital Signs from this encounter Vital Name 12/30/2020 09:57A Pulse Rate-Sitting (bpm) 63 Temp-Oral (F) 98 Height (in) 66 Oxygen Saturation (%) 98 Last Documented: On 12/30/2020 10:14A M ; [facility] Results Includes: Results discussed during this encounter Rapid COVID Test [facility] Ordered by HARRIETT FRENCH on 12/06 Collected: Reported: 12/30/2020 Last Documented On 10:08AM ; [facility] Reviewed on 12/30/2020; All test results are final unless otherwise noted. Rapid COVId neg N (Normal) Last Documented On 10:08AM ; [facility] Int. QC Acceptable yes N (Normal) Last Documented On 10:08AM ; [facility] Lot # and Exp. Date [id number] 03/19/21 N (Normal) Last Documented On 10:08AM ; [facility] History of Present Illness Includes: History [...] smoker 12/30/2020 Last Documented On 10:16AM ; [facility] Current smoker 12/30/2020 Last Documented On 10:16AM ; [facility] Smoking Status Unknown Procedures and Surgical History Includes: Procedures from this encounter Procedures Code Diagnosis Performing Provider Service L ocation Service Date the options include decongestants as needed per product instructions Last Documented On 10:11AM ; [facility] the options include antihistamines as ne eded per product instructions Last Documented On 10:11AM ; [facility] Pt to use OTC fever/pain product as need ed per product instruction.~ Last Documented On 10:11AM ; [facility] Pt to use OTC expectorant product as nee ded per product instruction.~ Last Documented On 10:11AM ; [facility] Pt to use OTC cough product as needed pe r product instruction.~ Last Documented On 10:11AM ; [facility] plan of care reviewed and agreed to Last Documented On 10:11AM ; [facility] patient to call if symptoms worsen or not improved to update patient's status as needed Last Documented On 10:11AM ; [facility] use of tobacco assessment performed 1000F Last Documented On 9:57AM ; [facility] Medical History Includes: Medical History addressed during this encounter Description Last Updated Exposure to a contagious disease 021 Last Documented On 10:16AM ; [facility] Not taking OTC medications 12/30/2020 Last Documented On 1 10:16AM ; [facility] Contact with and (Suspected) exposure to COVID-19 12/30/2020 Last Documented On 1 10:16AM ; [facility] Date COVID symptoms started: 12/2020 Last Documented On 1 10:16AM ; [facility] No fall 12/30/2020 Last Documented On 1 10:16AM ; [facility] Family History Includes: Family History addressed during [...] tive Last Documented On 1 9:56AM ; [facility] Encounters Encounter Provider Location Date Check-In Time Check-Out Time Diagnosis COVID SICK VISIT- ESTABLISHED PATIENT HARRIETT Guerrero IBANEZ [employer]ATIONAL FLATBED TRUCK DRIVER-C [facility] 12/31/19 21 9:42AM 10:07AM Contact with and (Suspected) Exposure To Covid-19 Insurance Includes: Active Insurance Policies Plan Name Member ID Group # Subscriber Relationship Effect tonya Dates 1 - AETNA [facility] [id number] TOREY PAGAN Self Clinical Notes Includes: Clinical Notes from this encounter No Clinical Notes Recorded
--- OUTSIDE RECORDS SUMMARY | 2024-09-18 10:32 | XMS_ITS | Clinical Summary ---
Author Organization [facility] Address [address] [place] [address] Phone Care Team Providers Care Hospital Secretary Name Role Phone Unavailable Unavailable Unavailable Reason [...] ; [facility] - Go to the emergency room if condition worsens - Last Documented On 12/26/2020 4:44PM ; [facility] - Patient will call for appointment as needed - Last Documented On 12/26/2020 4:44PM ; [facility] Instructions to patient Instructions for patient Last Documented On 4:37PM ; [facility] Go to the emergency room if condition worsens Last Documented On 4:43PM ; [facility] Watch for signs/symptoms of infection, return to the clinic if seen Last Documented On 4:43PM ; [facility] Assessments Includes: Assessments from this encounter Findings - Acute upper respiratory infection - Last Documented On 12/26/2020 4:44PM ; [facility] Instructions Includes: Instructions from this encounter Instructions to patient Instructions for patient Last Documented On 4:37PM ; [facility] Go to the emergency room if condition worsens Last Documented On 4:43PM ; [facility] Watch for signs/symptoms of infection, return to the clinic if seen Last Documented On 4:43PM ; [facility] Medical Equipment - Implanted Devices Includes: Current Devices No Medical Equipment Recorded Medications Includes: Medications discussed during this encounter and other current Medications Discontinued / Stopped on this date FRANCISCA FRENCH on 01/24/2020 Uvwlshan-Bfvrzucdl-SE 3.5-10 000-1 Otic Solution Provider: FRANCISCA FRENCH Diagnosis: Swimmer's ear, bilateral Last Documented On 12/26/2020 10:09AM By Blade ARMENDARIZ ; [facility] New / Renewed during this visit ADDISON SOSA on 12/26/2020 Zreklnsa-Oadmncxpc-CH 1% Vilma c Solution Provider: ADDISON SOSA 30 day supply: 10 mL, 0 refills Diagnosis: Acute serous otitis media, left ear as directed Pharmacy: [email or web address] [address], [address] - Last Documented On 10:15AM By ADDISON SOSA ; [facility] Medications Administered Includes: Administered Medications from [...] ; [facility] On 12/26/2020 10:10AM ; [facility] Results Includes: Results discussed during this encounter Rapid COVID Test [facility] Ordered by ADDISON SOSA on Collected: Reported: 12/26/2020 12:09 Last Documented On 12:09PM ; [facility] Reviewed on 12/26/2020; All test results are final unless otherwise noted. Rapid COVId NEGATIVE N (Normal) Last Documented On 12:09PM ; [facility] Int. QC Acceptable YES N (Normal) Last Documented On 1 12:09PM ; [facility] Lot # and Exp. Date [id number] 03/19/21 N (Normal) Last Documented On 1 12:09PM ; [facility] History of Present Illness Includes: History [...] ; [facility] Smoker 01/24/2020 Last Documented On 1 10:09AM ; [facility] Smoking Status Unknown Procedures and Surgical History Includes: Procedures from this encounter Procedures Code Diagnosis Performing Provider Service L ocation Service Date the options include close observation Last Documented On 1 4:43PM ; [facility] watch for signs/symptoms of infection, r eturn to the clinic if seen Last Documented On 1 4:43PM ; [facility] plan of care reviewed and agreed to by t he patient Last Documented On 1 4:37PM ; [facility] Patient verbalizes understanding Last Documented On 1 4:37PM ; [facility] Increase fluids Last Documented On 1 4:37PM ; [facility] Clinical summary provided to patient Last Documented On 1 4:37PM ; [facility] Medical History Includes: Medical History addressed during this encounter Description Last Updated Contact with and (Suspected) exposure to COVID-19 12/26/2020 Last Documented On 1 4:44PM ; [facility] No fall 12/26/2020 Last Documented On 1 4:44PM ; [facility] Family History Includes: Family History addressed during this encounter Description Last Updated Family history unchanged 12/26/2020 Last Documented On 1 4:44PM ; [facility] Review of Systems Includes: Review of Systems [...] ; [facility] Encounters Encounter Provider Location Date Check-In Time Check-Out Time Diagnosis COVID SICK VISIT- ESTABLISHED PATIENT ADDISON Masters BLADIMIR WELL PULLER-BC [facility] 12/27/19 21 9:40AM 10:13AM Upper Respiratory Infection Acute Insurance Includes: Active Insurance Policies Plan Name Member ID Group # Subscriber Relationship Effect tonya Dates 1 - [employer] [facility] [id number] TOREY PAGAN Self Clinical Notes Includes: Clinical Notes from this encounter No Clinical Notes Recorded
--- OUTSIDE RECORDS SUMMARY | 2024-09-18 10:32 | XMS_ITS ---
Care Plan - [facility] Created on: September 18, 2024 TOREY PAGAN : [id number] Sex: Female Author Organization [facility] Address [address] [place] [address] Phone Care Team Providers Care Seed Potato Arranger Name Role Phone Unavailable Unavailable Unavailable
== END 2024-09-18 10:14 | disposition home or self-care (01) ==
PROVIDERS: Emergency Provider Nurse Practitioner Family; PCP Internal Medicine
DX: L03.116 Cellulitis of left lower limb (principal)
CPT/HCPCS: 99213; G0463

== ENCOUNTER 2025-01-13 13:36 | Emergency (ER) | payer BC, SELFPAY ==
--- NOTE | 2025-01-13 13:41 | ED.SKABFB ---
HPI - Skin/Abscess/Foreign Bdy General Chief complaint: Skin/Abscess/Foreign Body Stated complaint: lump under left arm Time Seen by Provider: 01/13/25 13:50 Source: patient Mode of arrival: ambulatory Limitations: no limitations History of Present Illness HPI narrative: Lulú is a 39-year-old female patient presenting to the clinic today with complaints of a painful lump in the left axilla. She reports this has been going on for 4 days. Has applied warm compresses and Prid to the area. Area is becoming more painful and she is unable to lower her arm as this causes pressure and pain to the area. She denies any fevers, chills, body aches. Related Data Allergies Allergy/AdvReac Type Severity Reaction Status Date / Time morphine Allergy Severe Anaphylactic Verified 09/18/24 09:50 Shock ciprofloxacin Allergy Intermediate rash Verified 09/18/24 09:50 Review of Systems Review of Systems: Pertinent positives per HPI. Patient denies any fever, chills, rash, headache, visual changes, dizziness, cough, shortness of breath, chest pain, palpitations, nausea, vomiting, diarrhea, constipation, abdominal pain, or any urinary issues. [facility] Past Medical History Medical History Kidney stones Gallstones Surgical History Surgical History H/O tubal ligation History of tonsillectomy Social History Social History Smoking status: Current every day smoker Comments At the time of my signature, I reviewed and agree with the nursing past medical, surgical, social, and family history. There is no relevant family history pertinent to the patient complaint. Exam Narrative: General: Well-developed, well nourished, in no apparent distress Head: Normocephalic, atraumatic. Cardio: Regular rate and rhythm, s1 and s2 normal, no murmur appreciated. Resp: Clear to auscultation bilaterally, no rhonchi, rales, wheezing or rubs. Integumentary: [place], warm, and dry, tender, mildly red, mildly erythemic, indurated 7 x 6 cm abscess with very minimal fluctuance to the left axilla Course Course Emergency Course: Portions of this record may have been created with voice recognition software. Level of Care: Express Care Visit Vital Signs Vital signs: Vital Signs Temperature 37.0 C 01/13/25 13:46 Pulse Rate 99 01/13/25 13:46 Respiratory Rate 16 01/13/25 13:46 Blood Pressure 149/91 H 01/13/25 13:46 Pulse Oximetry 100 01/13/25 13:46 Oxygen Delivery Room Air 01/13/25 13:46 Temperature 37.0 C 01/13/25 13:46 Pulse Rate 99 01/13/25 13:46 Respiratory Rate 16 01/13/25 13:46 Blood Pressure 149/91 H 01/13/25 13:46 Pulse Oximetry 100 01/13/25 13:46 Oxygen Delivery Room Air 01/13/25 13:46 Vital signs reviewed Procedures Abscess I/D axilla: Date of Incision: 01/13/25 Side (if applicable): left Local Anesthetic: lidocaine 1% and with epi Amount of anesthesia used (mL): 4 Technique: incised with #11 blade Amount of fluid expressed (mL): 10 Irrigation: No Packing used?: iodoform I&D Results: Pus and Blood Complications: other (None) Abcess I&D Additional Comments: Verbal consent obtained for incision and drainage. Risk and benefits explained and patient voiced understanding. Area was cleansed with betadine. Area was prepped and draped using sterile technique. 27 gauge needle was then used to instill (4) ml of lidocaine with epi into the wound edges. Patient tolerated well and anesthesia was appropriate. An 11 blade scalpel was then used to make a 0.5cm incision over the abscess. White bloody exudate expressed from cavity. Wound culture obtained and sent to lab. Patient tolerated procedure well. MDM - Skin/Abscess/Foreign Bdy MDM Narrative Medical decision making narrative: At the time of visit patient is resting comfortably on the exam table. Patient appears to be nontoxic. Complaints of a painful lump in the left axilla. She reports this has been going on for 4 days. Has applied warm compresses and Prid to the area. Area is becoming more painful and she is unable to lower her arm as this causes pressure and pain to the area. She denies any fevers, chills, body aches. Shared decision making was performed with the patient. Offer to send the patient to the ER as her abscess is 7 x 6 cm and she has minimal fluctuant-they can do a ultrasound and drain the abscess there and also give her pain medications to help alleviate her pain. Other option is for me to attempt to drain the abscess in the clinic today. Procedures: Incision and drainage was performed in the clinic today. Approximately 10 mL white purulent discharge was expressed from the abscess. Wound culture was obtained and sent to the lab. Quarter-inch iodoform packing was inserted into the wound bed. Sterile dressing was applied. Patient tolerated well Plan: Patient has a large abscess to the left axilla. Incision and drainage performed. Wound culture was sent to the lab. Will place patient on clindamycin and give prescription for hydrocodone for moderate to severe pain. Supportive measures were discussed with the patient and they voiced understanding discharge instructions and agrees to treatment plan. Return precautions reviewed. Differential Diagnosis Differential diagnosis: Likely abscess of skin or subcutaneous tissue, viral exanthem, dermatophytosis, urticaria, herpes zoster, allergic reaction to drug, cellulitis, eczema, insect bites, impetigo and contact dermatitis Discharge Plan Discharge Clinical Impression: Abscess of skin or subcutaneous tissue Qualifiers: Site of cutaneous abscess: extremity Site of cutaneous abscess of extremity: axilla Laterality: left Qualified Code(s): L02.412 - Cutaneous abscess of left axilla Patient Disposition: Home Condition: Stable Instructions: Antibiotic Form, Abscess (ED), Abscess Incision and Drainage (DC) Additional Instructions: Incision and drainage performed in the clinic today Wound culture was sent to the lab. Leave wound packing in place for 2-3 days Keep area clean and dry Wash area daily with soap and water and pat dry. Take clindamycin as prescribed Take hydrocodone for moderate to severe pain May take Tylenol/Motrin as needed for uytl-by-agwjmbwz pain Follow-up with your PCP in 2-3 days for wound check and packing removal Patient Language: Citizen Of [place] Prescriptions: New clindamycin HCl [Cleocin HCl] 300 mg capsule 300 mg PO TID 10 Days Qty: 30 0RF hydrocodone-acetaminophen 5-325 mg tablet 1 tablet PO Q6H PRN (Reason: pain) 3 Days Qty: 12 0RF Follow-up/Referrals: Dory,MD Gail [Primary Care Provider] - Time of Disposition: 14:24 Quality NIHSS Nursing Documentation ED NIHSS nursing documentation: reviewed/agree
[2025-01-13 13:46] VITALS: BP 149/91; PULSE 99; RESP 16; TEMP 37; O2SAT 100
== END 2025-01-13 14:33 | disposition home or self-care (01) ==
PROVIDERS: Emergency Provider Nurse Practitioner Family; PCP Internal Medicine
DX: L02.412 Cutaneous abscess of left axilla (principal); F17.200 Nicotine dependence, unspecified, uncomplicated
CPT/HCPCS: 10061; 87070; 87075; 87205; 99213; G0463